=== PATIENT | female | born 1990 | race Caucasian/White ===

== ENCOUNTER 2022-01-21 09:05 | Inpatient (IN) | payer OTHER ==
[2022-01-21] MEDS ORDERED: ONDA-84 PO (09:22)
[2022-01-21] MEDS ORDERED: NS 1,000 ML IV ONE (11:25)
[2022-01-21] MEDS ORDERED: ONDANSETRON 4MG/2ML VIAL IV ONE (11:25)
[2022-01-21] MEDS ORDERED: METOCLOPRAMIDE INJ 10MG/2ML VIAL (J2765 PER 1) IV ONE (11:35)
[2022-01-21] MEDS ORDERED: PANTOPRAZOLE 40MG VIAL IV ONE (11:40)
[2022-01-21] MEDS ORDERED: KETOROLAC 30 MG/ML 1ML VIAL As Ordered ONE (11:43)
[2022-01-21 11:44] LABS: BASO % 0.1 % (0.0-1.0); EOS % 0.1 % (0.0-3.0); HEMATOCRIT 41.6 % (36.0-47.0); HEMOGLOBIN 13.5 g/dl (12.0-15.5); LYMPH # 1.3 10^3/uL (1.5-5.0); LYMPH % 8.7 % (24.0-44.0); MEAN CORPUSCULAR HGB CONC 32.5 g/dl (32.0-36.5); MEAN CORPUSCULAR VOLUME 89.5 fl (80.0-96.0); MONO # 0.8 10^3/uL (0.0-0.8); MONO % 5.1 % (2.0-8.0); NEUTROPHILS # 12.5 10^3/uL (1.5-8.5); NEUTROPHILS % 85.6 % (36.0-66.0); PLATELET COUNT, AUTOMATED 298 10^3/uL (150-450); RED BLOOD COUNT 4.65 10^6/uL (4.00-5.40); WHITE BLOOD COUNT 14.6 10^3/uL (4.0-10.0)
[2022-01-21] MEDS ORDERED: KETOROLAC 30 MG/ML 1ML VIAL IV ONE (11:45)
[2022-01-21] MEDS ORDERED: ISOVUE-370 76% 100ML VIAL As Ordered ONE (12:24)
[2022-01-21 12:28] LABS: ALT/SGPT 14 U/L (12-78); BILIRUBIN,DIRECT 0.1 MG/DL (0.0-0.2); BILIRUBIN,TOTAL 0.4 MG/DL (0.2-1.0); BLOOD UREA NITROGEN 6 MG/DL (7-18); CALCIUM LEVEL 9.5 MG/DL (8.5-10.1); CARBON DIOXIDE LEVEL 25 MEQ/L (21-32); CHLORIDE LEVEL 105 MEQ/L (98-107); CREATININE FOR GFR 0.45 MG/DL (0.55-1.30); GLOMERULAR FILTRATION RATE > 60.0 (>60); GLUCOSE, FASTING 103 MG/DL (70-100); LIPASE 106 U/L (73-393); POTASSIUM SERUM 4.4 MEQ/L (3.5-5.1); SODIUM LEVEL 137 MEQ/L (136-145); TOTAL PROTEIN 7.4 GM/DL (6.4-8.2)
[2022-01-21] MEDS ORDERED: PIPERACILLIN/TAZOBACTAM SOD 3.375 GM in D5W MINI-BAG PLUS 50 ML IV ONE (14:55)
[2022-01-21] MEDS ORDERED: SUCRALFATE 1 GM TAB PO ONE (14:55)
[2022-01-21 16:09] LABS: RSV AMPLIFICATION NEGATIVE (NEGATIVE)
[2022-01-21] MEDS ORDERED: MYLA1SUS PO (16:09)
[2022-01-21] MEDS ORDERED: LANS30TA9 PO (16:09)
[2022-01-21] MEDS ORDERED: HOME MED LIST COMPLETE! XX SCH (16:10)
[2022-01-21] MEDS: D5W/0.45% SODIUM CHLORIDE 1,000 ML IV SCH (16:25)
[2022-01-21 17:34] LABS: CK-MB VALUE MASS < 1.0 NG/ML (<3.6); CPK CREATINE PHOSPHOKINASE 26 U/L (26-192); MB/CK RELATIVE INDEX 3.85 (< OR =4)
[2022-01-21 19:47] LABS: HEMOGLOBIN 10.4 g/dl (12.0-15.5)
[2022-01-21] MEDS: PANTOPRAZOLE 40MG VIAL IV SCH (21:55)
[2022-01-21] MEDS: ONDANSETRON 4MG/2ML VIAL IV PRN (21:55)
[2022-01-22 00:15] LABS: HEMATOCRIT 36.9 % (36.0-47.0)
[2022-01-22] MEDS: D5W/0.45% SODIUM CHLORIDE 1,000 ML IV SCH ×2 (00:52→09:25)
[2022-01-22] MEDS: SUCRALFATE SUSP 1GM/10ML UD PO SCH ×4 (00:52→17:24)
[2022-01-22 03:26] VITALS: BP 116/68
[2022-01-22] MEDS ORDERED: KETOROLAC 30 MG/ML 1ML VIAL IV PRN (03:40)
[2022-01-22] MEDS ORDERED: ACETAMINOPHEN *IV* 1,000 MG in IV 1 EA IV ONE (04:00)
[2022-01-22 06:42] LABS: BASO % 0.1 % (0.0-1.0); EOS % 0.4 % (0.0-3.0); HEMATOCRIT 34.4 % (36.0-47.0); HEMOGLOBIN 11.3 g/dl (12.0-15.5); LYMPH # 1.8 10^3/uL (1.5-5.0); LYMPH % 26.9 % (24.0-44.0); MEAN CORPUSCULAR HEMOGLOBIN 28.7 pg (27.0-33.0); MEAN CORPUSCULAR HGB CONC 32.8 g/dl (32.0-36.5); MEAN CORPUSCULAR VOLUME 87.3 fl (80.0-96.0); MONO # 0.6 10^3/uL (0.0-0.8); MONO % 8.6 % (2.0-8.0); NEUTROPHILS # 4.3 10^3/uL (1.5-8.5); NEUTROPHILS % 63.9 % (36.0-66.0); PLATELET COUNT, AUTOMATED 213 10^3/uL (150-450); RED BLOOD COUNT 3.94 10^6/uL (4.00-5.40); WHITE BLOOD COUNT 6.7 10^3/uL (4.0-10.0)
[2022-01-22 07:08] LABS: ALBUMIN 2.8 GM/DL (3.2-5.2); ALT/SGPT 10 U/L (12-78); BILIRUBIN,TOTAL 0.4 MG/DL (0.2-1.0); BLOOD UREA NITROGEN 4 MG/DL (7-18); CALCIUM LEVEL 8.5 MG/DL (8.5-10.1); CARBON DIOXIDE LEVEL 24 MEQ/L (21-32); CHLORIDE LEVEL 108 MEQ/L (98-107); CREATININE FOR GFR 0.33 MG/DL (0.55-1.30); GLOMERULAR FILTRATION RATE > 60.0 (>60); GLUCOSE, FASTING 107 MG/DL (70-100); MAGNESIUM LEVEL 2.1 MG/DL (1.8-2.4); POTASSIUM SERUM 3.6 MEQ/L (3.5-5.1); SODIUM LEVEL 139 MEQ/L (136-145); TOTAL PROTEIN 5.2 GM/DL (6.4-8.2)
[2022-01-22] MEDS: PANTOPRAZOLE 40MG VIAL IV SCH (11:36)
[2022-01-22] MEDS: ONDANSETRON 4MG/2ML VIAL IV PRN (13:17)
[2022-01-22 14:00] VITALS: BP 98/63
[2022-01-22] MEDS ORDERED: PROTPAK PO ×2 (14:52→17:09)
[2022-01-22] MEDS ORDERED: SUCR1ORA PO ×2 (14:52→17:09)
== END 2022-01-22 18:05 | disposition home or self-care (01) | DRG 392 ==
LOC: EDBD 09:05 → M ED 09:05 → M ED INP 16:11 → M MS5PR 01-22 03:15
PROVIDERS: ADMIT Internal Medicine; ATTEND Internal Medicine
DX: K29.70 Gastritis, unspecified, without bleeding (principal); K95.09 Other complications of gastric band procedure; Z98.84 Bariatric surgery status; K21.00 Gastro-esophageal reflux disease with esophagitis, without bleeding; F31.9 Bipolar disorder, unspecified; Z90.49 Acquired absence of other specified parts of digestive tract; Z88.1 Allergy status to other antibiotic agents; Z88.5 Allergy status to narcotic agent; Z79.899 Other long term (current) drug therapy; D72.829 Elevated white blood cell count, unspecified; Z20.822 Contact with and (suspected) exposure to COVID-19

== ENCOUNTER 2022-09-06 20:40 | Emergency (ER) | payer OTHER ==
[~2022-09-06] VITALS: Ht 162.6 cm; Wt 45.5 kg
[~2022-09-06 20:40] MED LIST: LANS30TA9 PO; MYLA1SUS PO; ONDA-84 PO; PROTPAK PO; SUCR1ORA PO
[2022-09-06] MEDS ORDERED: NS 1,000 ML IV ONE (21:05)
[2022-09-06] MEDS ORDERED: PROMETHAZINE 25MG/ML 1ML VIAL IV ONE (21:05)
[2022-09-06] MEDS ORDERED: PANTOPRAZOLE 40MG VIAL IV ONE (21:05)
[2022-09-06] MEDS ORDERED: ACETAMINOPHEN 1000MG 100ML IV BAG IV ONE (21:25)
[2022-09-06 21:58] LABS: BASO % 0.2 % (0.0-1.0); EOS % 0.2 % (0.0-3.0); HEMATOCRIT 39.5 % (36.0-47.0); HEMOGLOBIN 12.7 g/dl (12.0-15.5); LYMPH # 1.4 10^3/uL (1.5-5.0); LYMPH % 21.5 % (24.0-44.0); MEAN CORPUSCULAR HEMOGLOBIN 27.3 pg (27.0-33.0); MEAN CORPUSCULAR HGB CONC 32.2 g/dl (32.0-36.5); MEAN CORPUSCULAR VOLUME 84.9 fl (80.0-96.0); MONO # 0.4 10^3/uL (0.0-0.8); NEUTROPHILS # 4.8 10^3/uL (1.5-8.5); NEUTROPHILS % 71.6 % (36.0-66.0); PLATELET COUNT, AUTOMATED 224 10^3/uL (150-450); RED BLOOD COUNT 4.65 10^6/uL (4.00-5.40); WHITE BLOOD COUNT 6.6 10^3/uL (4.0-10.0)
[2022-09-06] MEDS ORDERED: ISOVUE-370 76% 100ML VIAL As Ordered ONE (22:03)
[2022-09-06] MEDS ORDERED: ALBUTEROL SULFATE 2.5MG/0.5ML INH NEB SOLN NEB ONE (22:05)
[2022-09-06 22:18] LABS: ALBUMIN 4.1 G/DL (3.2-5.2); BILIRUBIN,DIRECT 0.2 MG/DL (<0.4); BILIRUBIN,TOTAL 0.7 MG/DL (0.3-1.2); TOTAL PROTEIN 6.8 G/DL (5.7-8.2)
[2022-09-06] MEDS ORDERED: METOCLOPRAMIDE INJ 10MG/2ML VIAL IV ONE (23:10)
[2022-09-06 23:46] VITALS: BP 92/55
== END 2022-09-07 00:05 | disposition home or self-care (01) ==
LOC: M ED 20:40
DX: K21.9 Gastro-esophageal reflux disease without esophagitis (principal); K29.00 Acute gastritis without bleeding; Z98.84 Bariatric surgery status; Z79.899 Other long term (current) drug therapy; Z88.0 Allergy status to penicillin; Z88.5 Allergy status to narcotic agent
CPT/HCPCS: 74177; 80047; 80076; 83605; 83690; 84702; 85025; 94640; 96361; 96374; 96375; 99284; C9113

== ENCOUNTER 2023-09-21 16:16 | Inpatient (IN) | payer OTHER ==
[~2023-09-21] VITALS: Ht 167.6 cm; Wt 66.2 kg
[2023-09-21] MEDS ORDERED: ONDANSETRON 4MG 2ML VIAL IV ONE ×2 (17:05→19:20)
[2023-09-21] MEDS: HYDROMORPHONE HCL 0.5 MG/ 0.5 ML SYRINGE IV PRN ×2 (17:20→17:53)
[2023-09-21] MEDS: NS 1,000 ML IV SCH (17:20)
[2023-09-21 17:30] LABS: LIPASE 32 U/L (12-53)
[2023-09-21 17:31] LABS: ALBUMIN 3.9 G/DL (3.2-5.2); ALKALINE PHOSPHATASE 73 U/L (46-116); ALT/SGPT 37 U/L (7.0-40); AST/SGOT 23 U/L (<34); BILIRUBIN,DIRECT 0.1 MG/DL (<0.4); BILIRUBIN,TOTAL 0.5 MG/DL (0.3-1.2); BLOOD UREA NITROGEN 12 MG/DL (9-23); CALCIUM LEVEL 8.6 MG/DL (8.5-10.1); CARBON DIOXIDE LEVEL 24 MMOL/L (20-31); CHLORIDE LEVEL 108 MMOL/L (98-107); CK-MB VALUE MASS < 1.0 NG/ML (<3.6); CPK CREATINE PHOSPHOKINASE 79 U/L (34-145); CREATININE FOR GFR 0.46 MG/DL (0.55-1.30); GLOMERULAR FILTRATION RATE > 60.0 (>60); GLUCOSE, FASTING 124 MG/DL (60-100); MB/CK RELATIVE INDEX 1.26 (< OR =4); POTASSIUM SERUM 3.9 MMOL/L (3.5-5.1); SODIUM LEVEL 139 MMOL/L (136-145); TOTAL PROTEIN 6.8 G/DL (5.7-8.2)
[2023-09-21 17:38] LABS: BASO % 0.1 % (0.0-1.0); EOS % 0.1 % (0.0-3.0); HEMATOCRIT 39.1 % (36.0-47.0); HEMOGLOBIN 12.2 g/dl (12.0-15.5); LYMPH # 1.9 10^3/uL (1.5-5.0); LYMPH % 5.9 % (24.0-44.0); MEAN CORPUSCULAR HGB CONC 31.2 g/dl (32.0-36.5); MEAN CORPUSCULAR VOLUME 83.4 fl (80.0-96.0); MONO # 1.5 10^3/uL (0.0-0.8); MONO % 4.5 % (2.0-8.0); NEUTROPHILS # 28.8 10^3/uL (1.5-8.5); NEUTROPHILS % 88.7 % (36.0-66.0); PLATELET COUNT, AUTOMATED 332 10^3/uL (150-450); RED BLOOD COUNT 4.69 10^6/uL (4.00-5.40)
[2023-09-21 17:51] LABS: INR 1.06; PROTHROMBIN TIME 13.5 SECONDS (12.5-14.5)
[2023-09-21 17:52] LABS: PARTIAL THROMBOPLASTIN TIME 23.7 SECONDS (24.8-34.2)
[2023-09-21 17:58] LABS: WHITE BLOOD COUNT 32.5 10^3/uL (4.0-10.0)
[2023-09-21] MEDS ORDERED: PIPERACILLIN/TAZOBACTAM SOD 4.5 GM in D5W MINI-BAG PLUS 50 ML IV ONE (18:40)
[2023-09-21 18:55] LABS: CK-MB VALUE MASS < 1.0 NG/ML (<3.6)
[2023-09-21 18:57] LABS: CPK CREATINE PHOSPHOKINASE 65 U/L (34-145); MB/CK RELATIVE INDEX 1.53 (< OR =4)
[2023-09-21] MEDS: GASTROGRAFIN SOLUTION 30ML PO SCH ×2 (19:15→19:44)
[2023-09-21] MEDS ORDERED: ISOVUE-370 76% 100ML VIAL As Ordered ONE (20:26)
[2023-09-21] MEDS ORDERED: HYDROMORPHONE HCL 0.5 MG/ 0.5 ML SYRINGE IV ONE (21:05)
[2023-09-21] MEDS ORDERED: ERGO500029 PO (22:14)
[2023-09-21] MEDS ORDERED: CALC0.009 EXT (22:14)
[2023-09-21] MEDS ORDERED: PANT-23 PO (22:14)
[2023-09-21] MEDS ORDERED: TRIA1CR80 EXT (22:14)
[2023-09-21] MEDS ORDERED: PANT40GR PO (22:17)
[2023-09-21 22:20] LABS: RSV AMPLIFICATION NEGATIVE (NEGATIVE)
[2023-09-21] MEDS ORDERED: HOME MED LIST COMPLETE! XX SCH (22:20)
[2023-09-21] MEDS ORDERED: fentaNYL 100 MCG/2 ML INJECTION IV ONE (23:30)
[2023-09-22] VITALS (11 sets, daily range): BP systolic 90–110; BP diastolic 54–70; TEMP 97.7–98.6; O2SAT 96–100
[2023-09-22] MEDS: NS 1,000 ML IV SCH ×4 (00:56→17:37)
[2023-09-22] MEDS ORDERED: PIPERACILLIN/TAZOBACTAM SOD 4.5 GM in D5W MINI-BAG PLUS 50 ML IV ONE (01:00)
[2023-09-22] MEDS ORDERED: HYDROmorphone 4MG TABLET PO PRN (02:35)
[2023-09-22] MEDS ORDERED: CIPROFLOXACIN 400 MG in IV 1 EA IV SCH (03:00)
[2023-09-22] MEDS ORDERED: ROCURONIUM BROMIDE 50MG/5ML VIAL As Ordered ONE ×2 (03:07→03:52)
[2023-09-22] MEDS ORDERED: MIDAZOLAM INJ 2MG/2ML VIAL As Ordered ONE (03:07)
[2023-09-22] MEDS ORDERED: propofoL 200 MG/20 ML VIAL As Ordered ONE (03:07)
[2023-09-22] MEDS ORDERED: fentaNYL 100 MCG/2 ML INJECTION As Ordered ONE ×2 (03:07→03:53)
[2023-09-22] MEDS ORDERED: LIDOCAINE 2% 100MG/5ML SDV (FOR ANES.) As Ordered ONE (03:07)
[2023-09-22] MEDS ORDERED: ONDANSETRON 4MG 2ML VIAL As Ordered ONE (03:13)
[2023-09-22] MEDS ORDERED: KETOROLAC 60MG 2ML VIAL As Ordered ONE (03:13)
[2023-09-22] MEDS ORDERED: ACETAMINOPHEN 1000MG 100ML IV BAG As Ordered ONE (03:39)
[2023-09-22] MEDS ORDERED: SUGAMMADEX SODIUM 500 MG/5 ML VIAL (BRIDION) As Ordered ONE (03:39)
[2023-09-22] MEDS ORDERED: LR 1,000 ML IV SCH (04:55)
[2023-09-22] MEDS: metroNIDAZOLE 500 MG in IV 1 EA IV SCH ×3 (06:25→21:28)
[2023-09-22] MEDS ORDERED: FLUCONAZOLE 400 MG in IV 1 EA IV ONE ×2 (08:00→14:00)
[2023-09-22] MEDS: SENOKOT S TAB PO SCH ×2 (09:47→21:31)
[2023-09-22] MEDS: PANTOPRAZOLE 40MG VIAL IV SCH ×2 (09:47→21:28)
[2023-09-22] MEDS: CIPROFLOXACIN 400 MG in IV 1 EA IV SCH ×2 (09:47→17:36)
[2023-09-22] MEDS ORDERED: ONDANSETRON 4MG 2ML VIAL IV SCH (10:50)
[2023-09-22] MEDS: ONDANSETRON 4MG 2ML VIAL IV PRN ×2 (11:01→17:36)
[2023-09-22] MEDS: KETOROLAC 30 MG/ML 1ML VIAL IV PRN ×2 (11:02→17:37)
[2023-09-22] MEDS: HYDROmorphone 2 MG TAB PO PRN ×2 (16:05→21:31)
[2023-09-23] VITALS (7 sets, daily range): BP systolic 99–108; BP diastolic 54–72; TEMP 97.4–98.4; O2SAT 97–100
[2023-09-23] MEDS: KETOROLAC 30 MG/ML 1ML VIAL IV PRN ×4 (00:12→23:26)
[2023-09-23] MEDS: NS 1,000 ML IV SCH ×3 (01:56→18:35)
[2023-09-23] MEDS: metroNIDAZOLE 500 MG in IV 1 EA IV SCH ×3 (04:30→23:27)
[2023-09-23] MEDS ORDERED: ACETAMINOPHEN *IV* 1,000 MG in IV 1 EA IV ONE (06:00)
[2023-09-23] MEDS: CIPROFLOXACIN 400 MG in IV 1 EA IV SCH ×2 (06:42→18:53)
[2023-09-23 07:31] LABS: HEMATOCRIT 27.2 % (36.0-47.0); MEAN CORPUSCULAR HEMOGLOBIN 26.1 pg (27.0-33.0); MEAN CORPUSCULAR HGB CONC 30.9 g/dl (32.0-36.5); MEAN CORPUSCULAR VOLUME 84.5 fl (80.0-96.0); PLATELET COUNT, AUTOMATED 159 10^3/uL (150-450); RED BLOOD COUNT 3.22 10^6/uL (4.00-5.40)
[2023-09-23 07:39] LABS: HEMOGLOBIN 8.4 g/dl (12.0-15.5)
[2023-09-23 07:47] LABS: ALBUMIN 2.6 G/DL (3.2-5.2); ALKALINE PHOSPHATASE 45 U/L (46-116); ALT/SGPT 29 U/L (7.0-40); AST/SGOT 14 U/L (<34); BILIRUBIN,TOTAL 0.6 MG/DL (0.3-1.2); BLOOD UREA NITROGEN 13 MG/DL (9-23); CALCIUM LEVEL 7.9 MG/DL (8.5-10.1); CARBON DIOXIDE LEVEL 24 MMOL/L (20-31); CHLORIDE LEVEL 110 MMOL/L (98-107); GLOMERULAR FILTRATION RATE > 60.0 (>60); GLUCOSE, FASTING 88 MG/DL (60-100); MAGNESIUM LEVEL 1.9 MG/DL (1.8-2.4); SODIUM LEVEL 139 MMOL/L (136-145)
[2023-09-23] MEDS ORDERED: NS 1,000 ML IV ONE (08:30)
[2023-09-23] MEDS: PANTOPRAZOLE 40MG VIAL IV SCH ×2 (09:46→23:26)
[2023-09-23] MEDS: SENOKOT S TAB PO SCH ×2 (09:46→23:28)
[2023-09-23] MEDS ORDERED: FLUCONAZOLE 200 MG in IV 1 EA IV SCH (11:00)
[2023-09-23] MEDS: HYDROmorphone 2 MG TAB PO PRN ×3 (11:08→23:29)
[2023-09-23] MEDS: FLUCONAZOLE 400 MG in IV 1 EA IV SCH (11:44)
[2023-09-23] MEDS: diphenhydrAMINE 25MG CAP PO PRN (21:08)
[2023-09-24 03:39] VITALS: BP 102/68; TEMP 97.7; O2SAT 100
[2023-09-24] MEDS: NS 1,000 ML IV SCH (05:32)
[2023-09-24] MEDS: metroNIDAZOLE 500 MG in IV 1 EA IV SCH ×3 (05:33→20:35)
[2023-09-24] MEDS: HYDROmorphone 2 MG TAB PO PRN ×3 (06:18→20:46)
[2023-09-24] MEDS: diphenhydrAMINE 25MG CAP PO PRN ×2 (06:18→17:37)
[2023-09-24 06:33] LABS: HEMATOCRIT 26.8 % (36.0-47.0); HEMOGLOBIN 8.4 g/dl (12.0-15.5); MEAN CORPUSCULAR HGB CONC 31.3 g/dl (32.0-36.5); PLATELET COUNT, AUTOMATED 160 10^3/uL (150-450); RED BLOOD COUNT 3.23 10^6/uL (4.00-5.40); WHITE BLOOD COUNT 6.8 10^3/uL (4.0-10.0)
[2023-09-24 06:53] LABS: ALBUMIN 2.5 G/DL (3.2-5.2); ALKALINE PHOSPHATASE 45 U/L (46-116); ALT/SGPT 23 U/L (7.0-40); AST/SGOT 11 U/L (<34); BILIRUBIN,TOTAL 0.5 MG/DL (0.3-1.2); BLOOD UREA NITROGEN 13 MG/DL (9-23); CALCIUM LEVEL 7.6 MG/DL (8.5-10.1); CARBON DIOXIDE LEVEL 21 MMOL/L (20-31); CHLORIDE LEVEL 109 MMOL/L (98-107); CREATININE FOR GFR 0.48 MG/DL (0.55-1.30); GLOMERULAR FILTRATION RATE > 60.0 (>60); GLUCOSE, FASTING 68 MG/DL (60-100); MAGNESIUM LEVEL 1.7 MG/DL (1.8-2.4); POTASSIUM SERUM 3.8 MMOL/L (3.5-5.1); SODIUM LEVEL 138 MMOL/L (136-145); TOTAL PROTEIN 4.7 G/DL (5.7-8.2)
[2023-09-24] MEDS: KETOROLAC 30 MG/ML 1ML VIAL IV PRN ×3 (07:06→20:43)
[2023-09-24] MEDS: CIPROFLOXACIN 400 MG in IV 1 EA IV SCH ×2 (07:06→17:34)
[2023-09-24 07:55] VITALS: BP 109/66; TEMP 98.2; O2SAT 98
[2023-09-24] MEDS ORDERED: MAG SULF 1GM/100ML (MAG RUN) 1 GM in IV 1 EA IV ONE (08:00)
[2023-09-24] MEDS ORDERED: GASTROGRAFIN SOLUTION 30ML As Ordered ONE (08:06)
[2023-09-24] MEDS: PANTOPRAZOLE 40MG VIAL IV SCH (09:42)
[2023-09-24] MEDS: SENOKOT S TAB PO SCH ×2 (09:43→20:34)
[2023-09-24] MEDS: FLUCONAZOLE 400 MG in IV 1 EA IV SCH (11:25)
[2023-09-24 12:09] VITALS: BP 113/68; TEMP 98.1; O2SAT 98
[2023-09-24] MEDS: SUCRALFATE 1 GM TAB PO SCH ×3 (12:18→20:34)
[2023-09-24 15:21] VITALS: BP 99/56; TEMP 97.3
[2023-09-24] MEDS: ONDANSETRON 4MG 2ML VIAL IV PRN ×2 (17:44→20:44)
[2023-09-24 20:00] VITALS: BP 118/72; TEMP 97.6; O2SAT 98
[2023-09-24] MEDS: PANTOPRAZOLE 40MG TAB (PROTONIX) PO SCH (20:34)
[2023-09-24 22:00] VITALS: BP 103/60; TEMP 98.4; O2SAT 97
[2023-09-25] MEDS: ONDANSETRON 4MG 2ML VIAL IV PRN (03:20)
[2023-09-25] MEDS: KETOROLAC 30 MG/ML 1ML VIAL IV PRN (03:20)
[2023-09-25] MEDS: HYDROmorphone 2 MG TAB PO PRN (03:22)
[2023-09-25] MEDS: metroNIDAZOLE 500 MG in IV 1 EA IV SCH (06:55)
[2023-09-25 07:30] VITALS: BP 110/51; TEMP 97.4; O2SAT 98
[2023-09-25 07:38] LABS: HEMATOCRIT 29.7 % (36.0-47.0); HEMOGLOBIN 9.2 g/dl (12.0-15.5); MEAN CORPUSCULAR HEMOGLOBIN 25.6 pg (27.0-33.0); MEAN CORPUSCULAR VOLUME 82.7 fl (80.0-96.0); PLATELET COUNT, AUTOMATED 183 10^3/uL (150-450); RED BLOOD COUNT 3.59 10^6/uL (4.00-5.40); WHITE BLOOD COUNT 6.3 10^3/uL (4.0-10.0)
[2023-09-25 08:04] LABS: ALBUMIN 2.6 G/DL (3.2-5.2); ALKALINE PHOSPHATASE 51 U/L (46-116); ALT/SGPT 21 U/L (7.0-40); AST/SGOT 10 U/L (<34); BILIRUBIN,TOTAL 0.3 MG/DL (0.3-1.2); BLOOD UREA NITROGEN 8 MG/DL (9-23); CARBON DIOXIDE LEVEL 27 MMOL/L (20-31); CHLORIDE LEVEL 110 MMOL/L (98-107); CREATININE FOR GFR 0.52 MG/DL (0.55-1.30); GLOMERULAR FILTRATION RATE > 60.0 (>60); GLUCOSE, FASTING 82 MG/DL (60-100); MAGNESIUM LEVEL 1.7 MG/DL (1.8-2.4); POTASSIUM SERUM 3.9 MMOL/L (3.5-5.1); SODIUM LEVEL 142 MMOL/L (136-145); TOTAL PROTEIN 5.2 G/DL (5.7-8.2)
[2023-09-25] MEDS: CIPROFLOXACIN 400 MG in IV 1 EA IV SCH (08:31)
[2023-09-25] MEDS: SUCRALFATE 1 GM TAB PO SCH ×2 (08:31→11:43)
[2023-09-25] MEDS: PANTOPRAZOLE 40MG TAB (PROTONIX) PO SCH (08:32)
[2023-09-25] MEDS: SENOKOT S TAB PO SCH (08:33)
[2023-09-25] MEDS: FLUCONAZOLE 400 MG in IV 1 EA IV SCH (11:00)
[2023-09-25] MEDS ORDERED: CIPR-249 PO (11:01)
[2023-09-25] MEDS ORDERED: SUCR1TA PO (11:01)
[2023-09-25] MEDS ORDERED: METR-265 PO (11:01)
[2023-09-25] MEDS ORDERED: DIFL200T PO (11:01)
[2023-09-25 11:50] VITALS: BP 113/57; TEMP 97.2; O2SAT 97
== END 2023-09-25 13:15 | disposition home or self-care (01) | DRG 329 ==
LOC: EDBD 16:16 → M ED 16:16 → M SDC 09-22 03:07 → M ED INP 09-22 04:13 → M PCU 09-22 05:06
PROVIDERS: ADMIT Surgery; ATTEND Surgery
PROC: 8E0W4CZ Robotic Assisted Procedure of Trunk Region, Percutaneous Endoscopic Approach (ICD-10-PCS; 2023-09-22)
PROC: 0DQ84ZZ Repair Small Intestine, Percutaneous Endoscopic Approach (ICD-10-PCS; principal; 2023-09-22 02:25)
DX: K28.5 Chronic or unspecified gastrojejunal ulcer with perforation (principal); K65.9 Peritonitis, unspecified; Z98.84 Bariatric surgery status; F41.9 Anxiety disorder, unspecified; Z90.49 Acquired absence of other specified parts of digestive tract

== ENCOUNTER → 2023-09-29 | Outpatient (CLI) | payer OTHER ==
[~2023-09-29] MED LIST changes: +CALC0.009 EXT; +CIPR-249 PO; +DIFL200T PO; +ERGO500029 PO; +METR-265 PO; +PANT-23 PO; +PANT40GR PO; +SUCR1TA PO; +TRIA1CR80 EXT
[2023-09-29 12:53] LABS: APPEARANCE, URINE CLEAR (CLEAR); BACTERIA, URINE AUTO NEGATIVE (NEGATIVE); BILIRUBIN, URINE AUTO NEGATIVE (NEGATIVE); BLOOD, URINE BLOOD NEGATIVE (NEGATIVE); COLOR, URINE YELLOW (YELLOW); GLUCOSE, URINE (UA) AUTO NEGATIVE (NEGATIVE); KETONE, URINE AUTO NEGATIVE (NEGATIVE); LEUKOCYTE ESTERASE, URINE AUTO NEGATIVE (NEGATIVE); MUCUS, URINE SMALL (NEGATIVE); NITRITE, URINE AUTO NEGATIVE (NEGATIVE); PROTEIN, URINE AUTO NEGATIVE (NEGATIVE); RBC, URINE AUTO 1 /HPF (0-3); SPECIFIC GRAVITY URINE AUTO 1.012 (1.002-1.035); SQUAMOUS EPITHELIAL CELL UR AU 0 /HPF (0-6); UROBILINOGEN, URINE AUTO 0.2 mg/dL (0.0-2.0); WBC, URINE AUTO 0 /HPF (0-3)
[2023-09-29 12:58] LABS: HEMATOCRIT 33.6 % (36.0-47.0); HEMOGLOBIN 10.4 g/dl (12.0-15.5); PLATELET COUNT, AUTOMATED 292 10^3/uL (150-450); WHITE BLOOD COUNT 5.6 10^3/uL (4.0-10.0)
[2023-09-29 13:25] LABS: BLOOD UREA NITROGEN < 5 MG/DL (9-23); CALCIUM LEVEL 8.5 MG/DL (8.5-10.1); CARBON DIOXIDE LEVEL 28 MMOL/L (20-31); CHLORIDE LEVEL 108 MMOL/L (98-107); CREATININE FOR GFR 0.52 MG/DL (0.55-1.30); GLOMERULAR FILTRATION RATE > 60.0 (>60); GLUCOSE, FASTING 80 MG/DL (60-100); POTASSIUM SERUM 4.3 MMOL/L (3.5-5.1); SODIUM LEVEL 140 MMOL/L (136-145)
== END ==
LOC: M LAB 11:53
PROVIDERS: ATTEND Physician Assistant
DX: K25.5 Chronic or unspecified gastric ulcer with perforation (principal)

== ENCOUNTER 2023-11-17 07:30 | Day surgery (SDC) | payer OTHER ==
[~2023-11-17] VITALS: Ht 167.6 cm; Wt 63.9 kg
[~2023-11-17 07:30] MED LIST changes: +CALC0.0017 EXT; -CALC0.009 EXT; +MULT-90 PO
[2023-11-17] MEDS: NS 1,000 ML IV ONE (07:47)
[2023-11-17] MEDS ORDERED: LIDOCAINE 2% 100MG/5ML SDV (FOR ANES.) As Ordered ONE (08:35)
[2023-11-17] MEDS ORDERED: fentaNYL 100 MCG/2 ML INJECTION As Ordered ONE (08:35)
[2023-11-17] MEDS ORDERED: propofoL 500 MG/50 ML VIAL As Ordered ONE (08:35)
[2023-11-17 08:38] VITALS: TEMP 98.7
[2023-11-17 08:53] VITALS: BP 97/66; O2SAT 100
== END 2023-11-17 09:00 | disposition home or self-care (01) ==
LOC: M OPP 07:30
PROVIDERS: ATTEND Surgery
DX: K29.70 Gastritis, unspecified, without bleeding (principal); K31.89 Other diseases of stomach and duodenum; K28.7 Chronic gastrojejunal ulcer without hemorrhage or perforation; F17.200 Nicotine dependence, unspecified, uncomplicated; Z98.84 Bariatric surgery status; Z79.899 Other long term (current) drug therapy; Z88.1 Allergy status to other antibiotic agents; Z88.5 Allergy status to narcotic agent
CPT/HCPCS: 43239; 88305; J3010

== ENCOUNTER 2024-07-10 06:29 | Emergency (ER) | payer OTHER ==
[~2024-07-10] VITALS: Ht 167.6 cm; Wt 58.7 kg
[2024-07-10] MEDS: NS 1,000 ML IV ONE (08:45)
[2024-07-10] MEDS ORDERED: HYDROMORPHONE HCL 0.5 MG/ 0.5 ML SYRINGE IV ONE (08:50)
[2024-07-10 09:17] LABS: BASO % 0.2 % (0.0-1.0); EOS # 0.1 10^3/uL (0.0-0.5); EOS % 0.9 % (0.0-3.0); HEMATOCRIT 34.2 % (36.0-47.0); HEMOGLOBIN 10.5 g/dl (12.0-15.5); LYMPH # 1.4 10^3/uL (1.5-5.0); LYMPH % 24.2 % (24.0-44.0); MEAN CORPUSCULAR HEMOGLOBIN 22.9 pg (27.0-33.0); MEAN CORPUSCULAR HGB CONC 30.7 g/dl (32.0-36.5); MEAN CORPUSCULAR VOLUME 74.5 fl (80.0-96.0); MONO # 0.3 10^3/uL (0.0-0.8); NEUTROPHILS # 3.9 10^3/uL (1.5-8.5); NEUTROPHILS % 69.2 % (36.0-66.0); PLATELET COUNT, AUTOMATED 256 10^3/uL (150-450); RED BLOOD COUNT 4.59 10^6/uL (4.00-5.40); WHITE BLOOD COUNT 5.6 10^3/uL (4.0-10.0)
[2024-07-10 09:35] LABS: HCG, SERUM QUALITATIVE NEGATIVE (NEGATIVE); LIPASE 40 U/L (12-53)
[2024-07-10 09:36] LABS: CK-MB VALUE MASS < 1.0 NG/ML (<3.6)
[2024-07-10 09:37] LABS: ALKALINE PHOSPHATASE 75 U/L (35-104); ALT/SGPT 16 U/L (7.0-40); AST/SGOT < 8 U/L (<34); BILIRUBIN,DIRECT 0.3 MG/DL (<0.4); BLOOD UREA NITROGEN 11 MG/DL (9-23); CALCIUM LEVEL 9.7 MG/DL (8.5-10.1); CARBON DIOXIDE LEVEL 24 MMOL/L (20-31); CHLORIDE LEVEL 107 MMOL/L (98-107); CREATININE FOR GFR 0.48 MG/DL (0.55-1.30); GLOMERULAR FILTRATION RATE > 60.0 (>60); GLUCOSE, FASTING 94 MG/DL (60-100); POTASSIUM SERUM 3.9 MMOL/L (3.5-5.1); SODIUM LEVEL 139 MMOL/L (136-145); TOTAL PROTEIN 7.6 G/DL (5.7-8.2)
[2024-07-10 09:38] LABS: CPK CREATINE PHOSPHOKINASE 76 U/L (34-145); MB/CK RELATIVE INDEX 1.31 (< OR =4)
[2024-07-10] MEDS: GASTROGRAFIN SOLUTION 30ML PO SCH (10:01)
[2024-07-10] MEDS: PANTOPRAZOLE 40MG VIAL IV ONE (10:01)
[2024-07-10] MEDS: ONDANSETRON 4MG 2ML VIAL IV ONE (10:02)
[2024-07-10] MEDS: MAALOX 30 ML SUSP *UDC PO ONE (10:02)
[2024-07-10] MEDS: LIDOCAINE VISCOUS 2% SOLN 15ML UDC PO ONE (10:02)
[2024-07-10] MEDS ORDERED: ISOVUE-370 76% 100ML VIAL As Ordered ONE (10:16)
[2024-07-10] MEDS: METOCLOPRAMIDE INJ 10MG/2ML VIAL IV ONE (10:53)
[2024-07-10] MEDS: KETOROLAC 30 MG/ML 1ML VIAL IV ONE (10:53)
[2024-07-10 11:02] LABS: CK-MB VALUE MASS < 1.0 NG/ML (<3.6)
[2024-07-10 11:14] LABS: CPK CREATINE PHOSPHOKINASE 72 U/L (34-145); MB/CK RELATIVE INDEX 1.38 (< OR =4)
[2024-07-10] MEDS ORDERED: PROTPAK PO (12:24)
[2024-07-10 13:34] VITALS: BP 102/65; TEMP 97.1; O2SAT 99
== END 2024-07-10 13:37 | disposition home or self-care (01) ==
LOC: M ED 06:29
DX: K21.9 Gastro-esophageal reflux disease without esophagitis (principal); N83.12 Corpus luteum cyst of left ovary; D64.9 Anemia, unspecified; R00.1 Bradycardia, unspecified; K29.00 Acute gastritis without bleeding; F41.9 Anxiety disorder, unspecified; F32.A Depression, unspecified; F17.210 Nicotine dependence, cigarettes, uncomplicated; F12.10 Cannabis abuse, uncomplicated; Z88.5 Allergy status to narcotic agent; Z79.810 Long term (current) use of selective estrogen receptor modulators (SERMs); Z79.899 Other long term (current) drug therapy
CPT/HCPCS: 36415; 71046; 74177; 80048; 80076; 81001; 82550; 82553; 83690; 84484; 84703; 85025; 87486; 87581; 87633; 87798; 93005; 93041; 94760; 96374; 96375; 99285; J1885; J2405; J2470; J2765; Q9963; Q9967

== ENCOUNTER 2024-07-12 00:03 | Emergency (ER) | payer OTHER ==
[~2024-07-12] VITALS: Ht 167.6 cm; Wt 59.8 kg
[2024-07-12] MEDS: ONDANSETRON 4MG 2ML VIAL IV ONE (03:44)
[2024-07-12] MEDS: KETOROLAC 30 MG/ML 1ML VIAL IV ONE (03:44)
[2024-07-12] MEDS: NS 1,000 ML IV ONE (03:45)
[2024-07-12 04:16] LABS: BASO % 0.1 % (0.0-1.0); EOS % 0.1 % (0.0-3.0); HEMATOCRIT 33.3 % (36.0-47.0); HEMOGLOBIN 10.2 g/dl (12.0-15.5); LYMPH # 1.4 10^3/uL (1.5-5.0); LYMPH % 19.7 % (24.0-44.0); MEAN CORPUSCULAR HEMOGLOBIN 23.2 pg (27.0-33.0); MEAN CORPUSCULAR HGB CONC 30.6 g/dl (32.0-36.5); MEAN CORPUSCULAR VOLUME 75.7 fl (80.0-96.0); MONO # 0.5 10^3/uL (0.0-0.8); MONO % 6.3 % (2.0-8.0); NEUTROPHILS # 5.2 10^3/uL (1.5-8.5); NEUTROPHILS % 73.5 % (36.0-66.0); PLATELET COUNT, AUTOMATED 235 10^3/uL (150-450); WHITE BLOOD COUNT 7.1 10^3/uL (4.0-10.0)
[2024-07-12 04:20] LABS: LIPASE 52 U/L (12-53)
[2024-07-12 04:21] LABS: AMYLASE 77 U/L (30-118)
[2024-07-12 04:22] LABS: ALBUMIN 4.1 G/DL (3.2-5.2); ALKALINE PHOSPHATASE 69 U/L (35-104); ALT/SGPT 16 U/L (7.0-40); AST/SGOT 9 U/L (<34); BILIRUBIN,DIRECT 0.3 MG/DL (<0.4); BILIRUBIN,TOTAL 0.7 MG/DL (0.3-1.2); BLOOD UREA NITROGEN 9 MG/DL (9-23); CALCIUM LEVEL 9.6 MG/DL (8.5-10.1); CARBON DIOXIDE LEVEL 26 MMOL/L (20-31); CHLORIDE LEVEL 104 MMOL/L (98-107); CREATININE FOR GFR 0.47 MG/DL (0.55-1.30); GLOMERULAR FILTRATION RATE > 60.0 (>60); GLUCOSE, FASTING 113 MG/DL (60-100); POTASSIUM SERUM 4.3 MMOL/L (3.5-5.1); SODIUM LEVEL 137 MMOL/L (136-145); TOTAL PROTEIN 7.4 G/DL (5.7-8.2)
[2024-07-12] MEDS: FAMOTIDINE 20MG/2ML VIAL IVP ONE (05:27)
[2024-07-12] MEDS ORDERED: ISOVUE-370 76% 100ML VIAL As Ordered ONE (05:27)
[2024-07-12 05:30] LABS: AMPHETAMINES LEVEL URINE NEGATIVE (NEGATIVE); BARBITURATES URINE NEGATIVE (NEGATIVE); BENZODIAZEPINES URINE NEGATIVE (NEGATIVE); COCAINE METABOLITE URINE NEGATIVE (NEGATIVE); METHADONE URINE NEGATIVE (NEGATIVE); OPIATES URINE NEGATIVE (NEGATIVE); PHENCYCLIDINE URINE NEGATIVE (NEGATIVE)
[2024-07-12 05:34] LABS: CANNABINOIDS URINE POSITIVE (NEGATIVE)
[2024-07-12] MEDS: HALOPERIDOL LACTATE 5MG/ML VIAL IV ONE (05:45)
[2024-07-12 06:37] VITALS: TEMP 97.6
[2024-07-12] MEDS ORDERED: CARA1TAB6 PO (08:12)
[2024-07-12 08:40] VITALS: BP 108/68; O2SAT 99
== END 2024-07-12 08:43 | disposition home or self-care (01) ==
LOC: M ED 00:03
DX: K29.00 Acute gastritis without bleeding (principal); R11.10 Vomiting, unspecified; K21.9 Gastro-esophageal reflux disease without esophagitis; E55.9 Vitamin D deficiency, unspecified; Z88.5 Allergy status to narcotic agent; Z79.810 Long term (current) use of selective estrogen receptor modulators (SERMs); Z79.899 Other long term (current) drug therapy
CPT/HCPCS: 74177; 80048; 80076; 80307; 81001; 82150; 83605; 83690; 85025; 87486; 87581; 87633; 87798; 93041; 96361; 96374; 96375; 99284; J1630; J1885; J2405; Q9967; S0028

== ENCOUNTER → 2024-07-26 | Outpatient (REF) | payer OTHER ==
[~2024-07-26] MED LIST changes: +CARA1TAB6 PO
== END ==
LOC: M SFHCDERM 18:11
PROVIDERS: ATTEND Physician Assistant
DX: D48.5 Neoplasm of uncertain behavior of skin (principal)